=== PATIENT | female | born 1980 | race Two or more races ===

== ENCOUNTER → 2024-10-05 | Outpatient (CLI) | payer MEDICAID, SELFPAY ==
--- NOTE | 2024-10-05 08:00 | XR_ITS ---
Examination: MRI abdomen with intravenous contrast. MRI abdomen without intravenous contrast. Date and time of exam: October 05, 2024 0830 hours INDICATIONS: Elevated liver enzymes on laboratory examination this month, diagnosis endometrial cancer Technique: Multiple axial, sagittal and coronal sections of the abdomen obtained. Transverse images, TR 6020, TE 107. T1 weighted transverse images, TR 582, TE 9.5. T2-weighted sagittal images, TR 4000, TE 105. T2-weighted sagittal images, TR 4000, TE 5. Coronal images, TR 4210, TE 107. Axial and coronal images are obtained post 20 cc intravenous injection, gadolinium. Findings: Hepatomegaly, 24 cm No focal liver lesions Splenomegaly 14 cm No gallstones Normal common hepatic common bile duct No pancreatic mass, no dilated pancreatic duct or peripancreatic edema No hydronephrosis Aorta normal size No ascites Postcontrast images demonstrate 2 subtle enhancing lesions in the left lobe of the liver, 9 mm axial image 22, 8 mm axial image 21 Additional 6 mm enhancing lesion lateral right lobe liver image 24 IMPRESSION: Enhancing lesions in the liver as above, consider early hepatic metastases Recommend follow-up MRI imaging in 3 months
== END | disposition home or self-care (01) ==
LOC: SMRI 07:56
PROVIDERS: PCP Nurse Practitioner Family; Referring Provider Nurse Practitioner Family; Visit Provider Nurse Practitioner Family
DX: K76.9 Liver disease, unspecified (principal)
CPT/HCPCS: 74183; A9579